=== PATIENT | male | born 1990 | race Asian ===

== ENCOUNTER 2017-02-02 15:23 | Emergency (ER) | payer MEDICAID ==
[2017-02-02] MEDS ORDERED: ONDANSETRON HCL 4 MG/2 ML VIAL ONE (15:45)
[2017-02-02] MEDS ORDERED: LIDOCAINE VISCOUS 2% 15 ML UDC ONE (16:03)
[2017-02-02] MEDS ORDERED: MAG-AL PLUS XS SUSP 30 ML UDC ONE (16:03)
[2017-02-02 16:04] LABS: BASOPHIL# 0.1 X 10^3uL (0.0-0.1); BASOPHILS 0.9 % (0.0-2.0); EOSINOPHILS 1.1 % (0.0-6.0); EOSINOPHILS# 0.1 X 10^3uL (0.0-0.4); HEMOGLOBIN 16.4 g/dL (14.0-18.0); LYMPHOCYTES 43.9 % (20.0-40.0); LYMPHOCYTES# 2.5 X 10^3uL (0.8-3.8); MEAN CELL VOLUME 87.7 fL (80.0-100.0); MEAN CORPUS. HGB CONCENTRATION 34.1 g/dL (32.0-36.0); MEAN CORPUSCULAR HEMOGLOBIN 29.9 pg (29.0-35.0); MEAN PLATELET VOLUME 7.9 fL (7.4-10.4); MONOCYTES 11.7 % (2.0-10.0); MONOCYTES# 0.7 X 10^3uL (0.2-1.0); NEUTROPHILS 42.4 % (54.0-75.0); NEUTROPHILS# 2.5 X 10^3uL (2.6-6.7); PLATELET COUNT 247 X 10^3uL (130-440); RED BLOOD COUNT 5.48 X 10^6uL (4.20-6.10); RED CELL DISTRIBUTION WIDTH 12.2 % (11.5-14.5); WHITE BLOOD COUNT 5.9 X 10^3uL (3.9-10.7)
[2017-02-02] MEDS ORDERED: DIPHENHYDRAMINE 50 MG/ML VIAL ONE (16:10)
[2017-02-02] MEDS ORDERED: HALOPERIDOL 5 MG/ML VIAL ONE (16:10)
[2017-02-02 16:11] LABS: A/G RATIO 1.1; ALBUMIN 4.2 g/dL (3.5-5.0); ALKALINE PHOSPHATASE 57 U/L (38-126); ALT 32 U/L (21-72); AST 24 U/L (17-59); BILIRUBIN, TOTAL 1.3 mg/dL (0.2-1.3); BLOOD UREA NITROGEN 20 mg/dL (9-20); CHLORIDE 106 mmol/L (98-107); CREATININE 1.2 mg/dL (0.7-1.3); EST GLOMERULAR FILTRATION RATE > 60 mL/min; GLUCOSE 67 mg/dL (70-100); LIPASE 50 U/L (23-300); POTASSIUM 4.3 mmol/L (3.5-5.1); SODIUM 145 mmol/L (137-145)
[2017-02-02] MEDS ORDERED: PANTOPRAZOLE 40 MG VIAL IV ONE (16:19)
[2017-02-02] MEDS ORDERED: NORMAL SALINE 100 ML IV ONE (16:22)
--- NOTE | 2017-02-02 16:44 | ER PHYSICIAN DOCUMENTATION ---
Physician Documentation [facility] Name:Tim Moscoso Age:26 yrs Sex:Male :1990 Arrival Date:02/02/2017 Time:15:20 Bed1 Private MD: Sean Li Disposition: 02/03 12:17 Chart complete. tl1 Disposition: 02/02/17 16:23 Discharged to Home/Self Care. Impression: Nausea, Vomiting - Dehydration. - Condition is Good. - Discharge Instructions: VOMITING (5y-Adult). - Prescriptions for lorazepam 1 mg Oral tablet - take 1 tablet by ORAL route 3 times per day as needed; 6 tablet. Zofran 4 mg Oral Tablet - take 1-2 tablet by ORAL route every 4-6 hours As needed; 10 tablet. - Medical Reconciliation form form. - Follow up: [facility]; When: Tomorrow; Reason: Recheck today's complaints. - Problem is new. - Symptoms have improved. HPI: 02/02 15:37 This 26 yrs old Male presents to ER with complaints of Nausea/Vomiting.tl1 15:37 The patient presents to the emergency department with nausea, with vomiting. tl1 15:40 History is challenging: non-linear, tangential, disjointed and confusing. As best I can tl1 tell, he has had intermittent abdominal pain, over the last year or so. He said he tried to get a diagnosis while he was in prisonl, to no avail. He got out of senior living about 2 weeks ago and since then his pain has been gradually worse. He describes it as a constant sharp, gnawing epigastric pain. He says he uses marijuana daily. For the last 10 days he has been drinking much more alcohol than he has historically, a fifth of liquor 3-4 days a week. He was unable to further characterize his pain. . Historical: - Allergies: PENICILLINS; - Home Meds: 1. Dilantin Oral - PMHx: Seizures; - PSHx: SKULL FX; - Tetanus: < 10 years. - Ebola Screening: : Patient denies travel to an Ebola-affected area in the 21 days before illness onset. No symptoms or risks identified at this time. . - Immunization history: Flu Vaccine >1 year. - Social history: Smoking status: Patient uses tobacco products, current every day smoker. Patient uses SISSY, marijuana Patient/guardian denies using IV drugs, The patient works RECENTLY IN S[employer]. ROS: 15:40 Abdomen/GI: Positive for abdominal pain, nausea, vomiting, abdominal cramps, Negative tl1 for hematemesis, black/tarry stool, rectal bleeding. 15:40 All other systems are negative. Exam: 15:40 Constitutional: The patient appears alert, awake, well developed, well hydrated, well tl1 groomed, well nourished, in obvious distress, mildly distressed, restless. 15:40 Eyes: Periorbital structures: appear normal, Conjunctiva: injected, Corneas: are normal, Sclera: icterus, is not appreciated. 15:40 ENT: Mouth: no acute changes, Oral mucosa: pink and intact, moist, Posterior pharynx: is normal. 15:40 Neck: ROM/movement: is normal, is supple. 15:40 Cardiovascular: Rate: normal, Rhythm: regular, Heart sounds: normal, Edema: is not appreciated, JVD: is not appreciated. 15:40 Respiratory: Respirations: normal, Breath sounds: are normal. 15:40 Abdomen/GI: Inspection: abdomen appears normal, Bowel sounds: diminished, Palpation: soft, moderate abdominal tenderness, in the epigastric area, rebound tenderness, is not appreciated, voluntary guarding, is not appreciated, Liver: no appreciated palpable abnormalities. 15:40 Back: CVA tenderness, is absent. 15:40 Skin: Exam negative for acute changes. 15:40 Neuro: Exam negative for acute changes. Vital Signs: 15:25 BP 126 / 72; Pulse 77; Resp 16; Temp 98.2; Pulse Ox 98% ; Weight 76.2 kg; Height 6 ft. jt 3 in. (190.50 cm); Pain 6/10; 15:25 Body Mass Index 21.00 (76.20 kg, 190.50 cm) jt MDM: 15:36 Patient medically screened. tl1 16:00 Differential diagnosis: Nonspecific abd pain, gastritis, cholecystitis, pancreatitis, tl1 viral gastroenteritis. Data reviewed: vital signs, nurses notes, lab test result(s), and as a result, I will discharge patient. Counseling: I had a detailed discussion with the patient and/or guardian regarding: the historical points, exam findings, and any diagnostic results supporting the discharge/admit diagnosis, lab results, the need for outpatient follow up, to return to the emergency department if symptoms worsen or persist or if there are any questions or concerns that arise at home. Medication response: The patient's symptoms are unchanged despite medication administration. Response to treatment: There is no appreciated change of the patient's symptoms at this time, and as a result, I will discharge patient. ED course: After he developed akathesia , he declined benadryl or anything else that might have helped his symptoms ( cogentin). He said he has an appointment with a PCP scheduled tomorrow at [facility], and is planning on keeping that. I encouraged him to return in the interim for any new or worsening symptoms.. 02/02 16:12 Order name: CBC AUTO DIF, MDIF/RMOR IF IND; Complete Time: 16:22 EDMS 02/02 16:22 Interpretation: WHITE BLOOD COUNT 5.9; HEMOGLOBIN 16.4; HEMATOCRIT 48.0; PLATELET COUNT tl1 247; NEUTROPHILS 42.4; LYMPHOCYTES 43.9; MONOCYTES 11.7. 02/02 16:13 Order name: COMPREHENSIVE METABOLIC PANEL; Complete Time: 16:22 EDMS 02/02 16:22 Interpretation: Normal: SODIUM 145; POTASSIUM 4.3; CHLORIDE 106; CARBON DIOXIDE 26; tl1 GLUCOSE 67; BLOOD UREA NITROGEN 20; CREATININE 1.2; EST GLOMERULAR FILTRATION RATE > 60. 02/02 16:13 Order name: LIPASE; Complete Time: 16:22 EDMS 02/02 16:22 Interpretation: Normal: LIPASE 50. tl1 Dispensed Medications: Completed: NS 0.9% 1000 ml IV at bolus once 15:40 Drug: NS 0.9% 1000 ml; Route: IV; Rate: bolus; Site: right antecubital; Delivery: lc [place] Tubing; 16:25 Follow up: IV Status: Completed infusion; IV Intake: 1000ml lc 15:44 Drug: Zofran 4 mg; Route: IVP; Infused Over: 2 mins; Site: right antecubital; lc 16:26 Follow up: Response: Nausea is decreased lc 15:55 Drug: GI Cocktail w/o Donnatol - (Maalox Suspension 30 ml, Lidocaine Liquid 2 % 15 ml); lc Route: PO; 16:27 Follow up: Response: Pain is decreased lc 16:00 Drug: Haldol 2.5 mg; Route: IVP; Infused Over: 2 mins; Site: right forearm; lc 16:26 Follow up: Response: Adverse reaction, Physician notified; Anxiety increased; PATIENT lc VERY ANXIOUS, WANTS HIS IV OUT AND TO LEAVE NOW 16:10 Drug: Protonix 40 mg; Route: IVPB; Infused Over: 15 mins; Site: right antecubital; lc 16:27 Follow up: IV Status: Completed infusion; IV Intake: 100ml lc 16:27 Not Given (Patient Refused; STATES HE WILL NEVER WAKE UP WITH THIS): Benadryl 25 mg IVP lc once Signatures: Do Camilo, SALLY RN Sean Porter MD MD tl1
--- NOTE | 2017-02-02 16:44 | ER NURSING DOCUMENTATION ---
Nurse's Notes [facility] Name:Tim Moscoso Age:26 yrs Sex:Male :1990 Arrival Date:02/02/2017 Time:15:20 Bed1 Private MD: Diagnosis:Nausea;Vomiting - Dehydration Presentation: 02/02 15:31 Acuity: CATALINO 3 15:36 Presenting complaint: Patient states: FOR 2 WEEKS C/O ABD PAIN, CONSTANT, WITH N/V/D, lc NO FEVER. TRIED ZANTAC AND PEPTO WITHOUT RELIEF. Transition of care: patient was not received from another setting of care. Notified ED Physician of patient's arrival and CC. 15:36 Method Of Arrival: Walk In Triage Assessment: 15:43 General: Appears uncomfortable, unkempt, Behavior is anxious, cooperative. Pain: lc Complains of pain in abdomen Pain radiates to LEFT TO RIGHT Pain At worst was 8 out of 10 on a pain scale. Quality of pain is described as crampy, throbbing, gnawing, Pain began 2 WEEKS Also complains of nausea. Neuro: Level of Consciousness is awake, alert, Oriented to person, place, time, event. GI: Abdomen is flat, Bowel sounds present X 4 quads. Abd is soft Abdomen is tender to palpation GENERAL TENDERNESS Reports diarrhea, nausea, vomiting. Historical: - Allergies: PENICILLINS; - Home Meds: 1. Dilantin Oral - PMHx: Seizures; - PSHx: SKULL FX; - Tetanus: < 10 years. - Ebola Screening: : Patient denies travel to an Ebola-affected area in the 21 days before illness onset. No symptoms or risks identified at this time. . - Immunization history: Flu Vaccine >1 year. - Social history: Smoking status: Patient uses tobacco products, current every day smoker. Patient uses SISSY, marijuana Patient/guardian denies using IV drugs, The patient works RECENTLY IN [employer]. Screenin:46 Infectious Disease Risk None. Abuse screen: Denies threats or abuse. Denies injuries lc from another. Nutritional screening: Has had N/V for 3 or more days. Assessment: 15:46 See Triage Assessment done by same RN. GI: Abdomen is flat. 16:33 Reassessment: AFTER HALDOL DOSE BECAME VERY ANXIOUS AND WANTED IV OUT AND TO LEAVE. lc FINISHED IV MEDS AND FLUIDS, THE IV DC'D. FRIEND STAYED HERE TO GET DC INSTRUCTIONS AND RX'S. HAS APPT WITH [facility] TOMORROW. COPY OF LABS GIVEN. NOTIFIED.. 16:38 Reassessment: NO N/V/D WHILE IN ED. Vital Signs: 15:25 BP 126 / 72; Pulse 77; Resp 16; Temp 98.2; Pulse Ox 98% ; Weight 76.2 kg; Height 6 ft. jt 3 in. (190.50 cm); Pain 6/10; 15:25 Body Mass Index 21.00 (76.20 kg, 190.50 cm) jt ED Course: 15:20 Patient arrived in ED. em3 15:35 Inserted peripheral IV: saline lock: 20 gauge antecubital area and blood collected. jt 15:36 Triage completed. lc 15:36 Sean Austin MD is Attending Physician. tl1 15:46 Valuables Remains with patient Patient has correct armband on for positive lc identification. Placed in gown. Bed in low position. Call light in reach. Adult w/ patient. 15:54 Do Camilo, RN is Primary Nurse. 16:00 Labs drawn. (by ED staff). Sent per order to lab. lc 16:22 [facility] is Referral Physician. tl1 Administered Medications: Completed: NS 0.9% 1000 ml IV at bolus once 15:40 Drug: NS 0.9% 1000 ml; Route: IV; Rate: bolus; Site: right antecubital; Delivery: lc [place] Tubing; 16:25 Follow up: IV Status: Completed infusion; IV Intake: 1000ml 15:44 Drug: Zofran 4 mg; Route: IVP; Infused Over: 2 mins; Site: right antecubital; lc 16:26 Follow up: Response: Nausea is decreased 15:55 Drug: GI Cocktail w/o Donnatol - (Maalox Suspension 30 ml, Lidocaine Liquid 2 % 15 ml); Route: PO; 16:27 Follow up: Response: Pain is decreased 16:00 Drug: Haldol 2.5 mg; Route: IVP; Infused Over: 2 mins; Site: right forearm; lc 16:26 Follow up: Response: Adverse reaction, Physician notified; Anxiety increased; PATIENT lc VERY ANXIOUS, WANTS HIS IV OUT AND TO LEAVE NOW 16:10 Drug: Protonix 40 mg; Route: IVPB; Infused Over: 15 mins; Site: right antecubital; 16:27 Follow up: IV Status: Completed infusion; IV Intake: 100ml 16:27 Not Given (Patient Refused; STATES HE WILL NEVER WAKE UP WITH THIS): Benadryl 25 mg IVP once Intake: 16:25 IV: 1000ml; Total: 1000ml. 16:27 IV: 100ml; Total: 1100ml. Outcome: 16:23 Discharge ordered by . tl1 16:35 Discharged to home ambulatory, with friend. 16:35 Condition: improved 16:35 Discharge Assessment: Patient awake and alert. Oriented to person, place and time. Patient verbalized understanding of disposition instructions. Patient ANXIOUS AND WANTS TO LEAVE 16:35 Discharge instructions given to friend, Instructed on discharge instructions, follow up and referral plans. medication usage, GIVEN SODA FOR HIS LOW BLOOD SUGAR TO DRINK AT HOME Demonstrated understanding of instructions, medications, Prescriptions given X 2. 16:44 Patient left the ED. 02/03 10:40 Discharge F/U Call: Unable to reach: left voicemail: tg Signatures: Abhijeet Romero RN Do Yanez RN RN lc Meiklejohn, Eric em3 Leigh, Tom, MD MD tl1 Christina Lala
== END 2017-02-02 16:44 | disposition home or self-care (01) ==
LOC: ER 15:23
DX: E86.0 Dehydration (principal); R11.2 Nausea with vomiting, unspecified; R10.13 Epigastric pain; F10.10 Alcohol abuse, uncomplicated; F12.90 Cannabis use, unspecified, uncomplicated; Z79.899 Other long term (current) drug therapy
CPT/HCPCS: 80053; 83690; 85025; 96365; 96375; 99284; J1200; J1630; J2405